=== PATIENT | female | born 1940 | race Caucasian/White ===

== ENCOUNTER 2020-01-10 06:00 | Day surgery (SDC) | payer OTHER, MEDICARE ==
[2020-01-09 17:24] VITALS: BMI 23.4
--- OUTSIDE RECORDS SUMMARY | 2020-01-10 13:02 | XMS ---
:1940 Author Organization [facility] Care Team Providers Name Role Phone Enrike Julian Unavailable Unavailable Virtual, Provider Unavailable Unavailable Tal Jones Unavailable Unavailable Jenifer Govea Unavailable Unavailable Re-disclosure Warning The records that you are about to access may contain information from federally- assisted alcohol or drug abuse programs. If such information is present, then the following federally mandated warning applies: This information has been disclosed to you from records protected by federal confidentiality rules (42 CFR part 2). The federal rules prohibit you from making any further disclosure of this information unless further disclosure is expressly permitted by the written consent of the person to whom it pertains or as otherwise permitted by 42 CFR part 2. A general authorization for the release of medical or other information is NOT sufficient for this purpose. The Federal rules restrict any use of the information to criminally investigate or prosecute any alcohol or drug abuse patient.The records that you are about to access may contain highly sensitive health information, the redisclosure of which is protected by Article 27-F of the [facility] Public Health law. If you continue you may haveaccess to information: Regarding HIV / AIDS; Provided by facilities licensed or operated by the [facility] Office of Mental Health; or Provided by the [facility] Office for People With Developmental Disabilities. If such information is present, then the following [facility] mandated warning applies: This information has been disclosed to you from confidential records which are protected by state law. State law prohibits you from making any further disclosure of this information without the specific written consent of the person to whom it pertains, or as otherwise permitted by law. Any unauthorized further disclosure in violation of state law may result in a fine or fpc sentence or both. A general authorization for the release of medical or other information is NOT sufficient authorization for further disclosure. Allergies and Adverse Reactions Type Description Substance Reaction Status Data Source(s ) 1 LATEX LATEX rash (mild) rash Rash NEX TGEN ([facility] (mild to moderate) [facility] [place] [facility] ) Encounters Encounter Providers Location Date Indications Data Source(s ) Outpatient Attender: Luke 12/12/2019 THERESEGEN ([facility] 12:07:00 PM Medical [facility] [place] [facility] ) Outpatient Attender: Luke 10/12/2019 THERESEGEN ([facility] 12:00:00 AM Medical [facility] ) Outpatient Attender: Enrike 09/23/2019 THERESEGE N ([facility] 02:38:00 PM Medical [facility] ) Outpatient Attender: Enrike 09/23/2019 NEXTGE N ([facility] SteinReferrer: 11:30:00 AM Medical [facility] [place] Enrike Julian [facility] Out[facility] Attender: Tal 09/21/2019 THERESEGEN ( [facility] GottesfeldReferrer: 10:00:00 AM [facility] Outpatient Attender: Royce 06/28/2019 NEXTGE N ([facility] VirtualReferrer: 10:47:00 AM [facility] Outpatient Attender: Tal 06/16/2019 THERESEGEN ( [facility] 03:42:00 PM Medical [facility] [facility] ) Outpatient Attender: Enrike 06/05/2019 NEXTGE N ([facility] 12:00:00 AM Medical [facility] [place] [facility] ) Outpatient Attender: Luke 05/24/2019 THERESEGEN ([facility] 12:18:00 PM Medical [facility] EST [facility] ) Outpatient Attender: Luke 05/19/2019 THERESEGEN ([facility] 09:39:00 AM [facility] [place] [facility]) Outpatient Attender: Luke 05/09/2019 THERESEGEN ([facility] 02:41:00 PM [facility] [place] [facility]) Outpatient Attender: Luke 05/08/2019 THERESEGEN ([facility] RizziReferrer: 10:45:00 AM [facility] [place] Luke [facility] [facility]) Outpatient Attender: Luke 04/19/2019 THERESEGEN ([facility] 10:10:00 AM [facility] [place] [facility]) Outpatient Attender: Tal 04/06/2019 THERESEGEN ( [facility] 03:20:00 PM [facility] [place] [facility]) Outpatient Attender: Tal 02/09/2019 MYRON ( [facility] GottesfeldReferrer: 11:00:00 AM Medi lucie [place] [facility]) Outpatient Attender: Luke 02/06/2019 THERESEGEN ([facility] 10:53:00 AM [facility] [place] [facility]) Outpatient Attender: Luke 02/01/2019 MYRON ([facility] 03:03:00 PM [facility] [place] [facility]) Outpatient Attender: Luke 01/31/2019 THERESEGEN ([facility] 08:12:00 AM [facility] [place] [facility]) Outpatient Attender: Luke 01/26/2019 THERESEGEN ([facility] RizziReferrer: 11:00:00 AM [facility] [place] Luke Govea EDT [facility]) Outpatient Attender: Luke 01/16/2019 THERESEGEN ([facility] 12:00:00 AM [facility] [place] [facility]) Outpatient Attender: Luke 12/21/2018 THERESEGEN ([facility] RizziReferrer: 01:45:00 PM [facility] [place] Luke [facility] EDT [facility] up [facility]) Outpatient Attender: Enrike 06/06/2018 WILFRID Powers ([facility] 12:00:00 AM [facility] [place] [facility]) Outpatient Attender: Enrike 12/06/2017 WILFRID Powers ([facility] 12:00:00 AM [facility] [place] [facility]) Outpatient Attender: Enrike 05/26/2017 NEXTMAGGIE N ([facility] 12:00:00 AM [facility] [place] [facility]) Outpatient Attender: Luke 12/03/2016 NEXTGEN ([facility] 12:00:00 AM [facility] [place] [facility]) Outpatient Attender: Luke 11/29/2016 NEXTGEN ([facility] 12:00:00 AM Medical [facility] [place] [facility]) Outpatient Attender: Tal 08/01/2015 NEXTGEN ( [facility] GottesfeldReferrer: 11:00:00 AM [facility] [facility]) Medications Medication Brand Start Product Dose Route Administrative Pharmacy [facility] Indications Reaction Description Data Name Date Form Instructions Instructions Source(s) 250 mg-200 take 1 capsule RP NEXTGEN unit-40 by oral route 2 ( [facility] mg-1 mg-5 times every day Medical - mg-1 mg 250 [place] mg-200 Medical unit-40 Group PC) mg-1 mg-5 mg-1 mg This may be an active medication. No end date is available. Start date above may not reflect actual date the medication was s tarted. 15 billion cell 15 billion RP NEXTGEN ([facility] [place] [facility] [place] [facility]) This may be an active medication. No end date is available. Start date above may not reflect actual date the medication was s tarted. 500 mg calcium (1,250 mg)-125 RP NEXTGEN ([facility] - [facility] unit 500 mg calcium (1,250 [place] [facility]) mg)-125 unit This may be an active medication. No end date is available. Start date above may not reflect actual date the medication was s tarted. "" "" take 1 tablet by oral route RP NEXTGEN ([facility] - [place] every day [place] [facility]) This may be an active medication. No end date is available. Start date above may not reflect actual date the medication was s tarted. Ibuprofen 200 MG IBUPROFEN take 2 tablet by RP NEXTGEN ([facility] Oral Tablet 200 mg oral route Medical - [place] 200 mg every 6 hours as M edical Group PC) needed with food This may be an active medication. No end date is available. Start date above may not reflect actual date the medication was s tarted. Lorazepam 0.5 MG LORAZEPAM take 1 tablet by RP NEXTGEN ([facility] Oral Tablet 0.5 mg oral route q hs [facility] - [place] 0.5 mg prn Medical Group PC) This may be an active medication. No end date is available. Start date above may not reflect actual date the medication was s tarted. Diphenhydramine BENADRYL take 1 capsule RP NEXTGEN ([facility] Hydrochloride 25 MG Oral by oral route Medical - [place] Capsule [Benadryl] 25 mg every 6 hours Medical Group PC) 25 mg as needed This may be an active medication. No end date is available. Start date above may not reflect actual date the medication was s tarted. 24 HR METOPROLOL 06/16/2019 TAKE 1 RP NEXT[facility] metoprolol SUCCINATE 12:00:00 AM TABLET BY ([facility] succinate 50 MG EDT MOUTH Med ical - [place] Extended EVERY [facility] Release Oral NIGHT Group PC) Tablet 50 mg 50 mg This may be an active medication. No end date is available. Escitalopram 10 MG LEXAPRO 05/08/2019 take 1 RP [facility] Oral Tablet 12:00:00 AM EST tablet by ([facility] [Lexapro] 10 mg 10 oral route Medical - [place] mg every day [facility] Group PC) This may be an active medication. No end date is available. Amlodipine 5 MG AMLODIPINE 04/06/2019 TAKE 1 RP [facility] Oral Tablet 5 BESYLATE 12:00:00 AM TABLET BY ([facility] mg 5 mg EST MOUTH Medical - t EVERY DAY [facility] Group PC) This may be an active medication. No end date is available. Lorazepam 0.5 LORAZEPAM 12/21/2018 take 1 RP NEXTGEN MG Oral Tablet 12:00:00 AM EDT Tablet by ([facility] 0.5 mg 0.5 mg oral route 2 Medical - [place] times every [facility] dical day as Group PC) needed This may be an active medication. No end date is available. "" "" 11/15/2015 12:00:00 take 1 tablespoon by RP NEXTGEN ([facility] AM EDT oral route every [facility] day mix with water M edical Group PC) This may be an active medication. No end date is available. 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 09/21/2019 NEX TGEN (valve) regurgitation, 10:00:00 AM ([facility] insufficiency nonrheumatic EDT [facility]) Z98.890 Other specified Status post Diagnosis 09/21/2019 NEXTGEN postprocedural catheter ablation 10:00:00 AM ([facility] states of atrial EDT Medical [facility] fibrillation [facility]) R55 Syncope and Syncope, Diagnosis 09/21/2019 NEXTGEN collapse unspecified 10:00:00 AM ([facility] syncope type EDT [facility]) I48.0 Paroxysmal atrial Paroxysmal atrial Diagnosis 09/21/2019 NEXTGEN fibrillation fibrillation 10:00:00 AM ([facility] ED[facility]) I10 Essential (primary) Essential Diagnosis 09/21/2019 NEXTG EN hypertension hypertension 10:00:00 AM ([facility] ED[facility]) F41.1 Generalized anxiety Anxiety state Diagnosis 05/08/2019 NE XTGEN disorder 10:45:00 AM ([facility] EST [facility]) E78.5 Hyperlipidemia, Dyslipidemia Diagnosis 05/08/2019 NEXTGEN unspecified 10:45:00 AM ([facility] EST [facility]) D64.9 Anemia, unspecified Anemia, Diagnosis 05/08/2019 NEXTG EN unspecified type 10:45:00 AM ([facility]) H91.93 Unspecified hearing Bilateral hearing Diagnosis 0 NEXTGEN loss, bilateral loss, unspecified 10:45:00 AM ( [facility] hearing loss type EST [facility]) Z71.89 Other specified Vaccine counseling Diagnosis 01/26/2019 N EXTGEN counseling 11:00:00 AM ([facility]) 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, 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 [facility] bilateral, stage [facility]ular [facility]) unspecified stage J43.2 Centrilobular Centrilobular Diagnosis 01/26/2019 NEXTGEN emphysema emphysema 11:00:00 AM ([facility]) 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 01/26/2019 NEXTGEN hyperlipidemia hyperlipidemia 11:00:00 AM ([facility] PC) Z00.00 Encounter for Routine medical Diagnosis 01/26/2019 NEXTGE N general adult exam 11:00:00 AM ([facility] medical examination EDT Medic al - [place] without abnormal [facility] findings [facility]) H93.8x9 Other specified Pressure sensation Diagnosis 12/21/2018 N EXTGEN disorders of ear, in ear, 01:45:00 PM ([facility] unspecified ear unspecified EDT [facility]) Surgeries/Procedures Procedure Description Date Indications Data Source(s) TTE W/DOPPLER COMPLETE TTE W/DOPPLER COMPLETE 09/21/2019 NEXTGEN 12:00:00 ([facility] EDT [facility]) ELECTROCARDIOGRAM ELECTROCARDIOGRAM 09/21/2019 NEXTG EN COMPLETE COMPLETE 12:00:00 ([facility]) OFFICE/OUTPATIENT VISIT OFFICE/OUTPATIENT VISIT 09/21/2019 NEXTGEN EST EST 12:00:00 ([facility]) OFFICE/OUTPATIENT VISIT OFFICE/OUTPATIENT VISIT 02/09/2019 NEXTGEN EST EST 12:00:00 ([facility]) IIV NO PRSV INCREASED AG IIV NO PRSV INCREASED AG 01/26/2019 NEXTGEN IM IM 12:00:00 ([facility] Medical [facility]) Administration of Admin influenza virus 01/26/2019 N EXTGEN influenza virus vaccine vac 12:00:00 ([facility] Medical [facility]) Annual wellness visit, Ppps, subseq visit 01/26/2019 NEXTGEN includes a personalized 12:00:00 ([facility] prevention plan of [facility] service (pps), [facility] Group ) OFFICE/OUTPATIENT VISIT OFFICE/OUTPATIENT VISIT 12/21/2018 NEXTGEN NEW NEW 12:00:00 ([facility]) Results ID Date Data Source [id number] 01/06/2020 08:45:00 AM EDT [facility] Name Value Range Interpretation Description Data Sup porting Code Source(s) Document(s ) SARS [facility] coronavirus 2 RNA This lab was ordered by [facility] and reported by [facility]. ID Date Data Source [id number] 10/10/2019 10:40:00 AM EDT [facility] Name Value Range Interpretation Description Data Sup porting Code Source(s) Document(s ) 2019 Novel [facility] Coronavirus RNA Interpretation Unspecified Specimen Qualitative BRENDA Probe Detection This lab was ordered by [facility] and reported by [facility]. Procedure
[2020-01-10 14:36] VITALS: BP 136/67; PULSE 67; TEMP 97.8
--- NOTE | 2020-01-15 10:53 | PATH ---
Cytology Non-Gynecological Report Patient Name: CONSTANTIN BENAVIDES Med. Rec. 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 NO MALIGNANT CELLS IDENTIFIED. 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 CLINICAL CORRELATION IS RECOMMENDED. Electronically Signed Dimas Gordon M.D. Gross Description Approximately 45cc of yellow fluid received fixed in 50% alcohol. One cytospin and one cellblock prepared.
== END 2020-01-10 14:10 | disposition home or self-care (01) ==
LOC: JRADIR 06:00
PROVIDERS: ATTEND Surgery
PROC: 0W9J3ZX Drainage of Pelvic Cavity, Percutaneous Approach, Diagnostic (ICD-10-PCS; principal; 2020-01-10)
PROC: BW40ZZZ Ultrasonography of Abdomen (ICD-10-PCS; 2020-01-10)
DX: R18.8 Other ascites (principal)
CPT/HCPCS: 76942; 76942-TC; 87070; 87075; 87102; 87116; 87205; 87206; 87210; 88108; 88305-TC